=== PATIENT | female | born 1995 | race Caucasian/White ===

== ENCOUNTER → 2019-11-21 | Outpatient (REF) | payer OTHER ==
[2019-11-21 11:14] LABS: BLOOD UREA NITROGEN 12 MG/DL (7-18); CARBON DIOXIDE LEVEL 27 MEQ/L (21-32); CHLORIDE LEVEL 106 MEQ/L (98-107); CREATININE FOR GFR 0.88 MG/DL (0.55-1.30); GLOMERULAR FILTRATION RATE > 60.0 (>60); GLUCOSE, FASTING 99 MG/DL (70-100); POTASSIUM SERUM 4.4 MEQ/L (3.5-5.1); SODIUM LEVEL 139 MEQ/L (136-145)
== END ==
LOC: M SFHCLERA 08:45
PROVIDERS: ATTEND Family Medicine
DX: L70.0 Acne vulgaris (principal)

== ENCOUNTER → 2019-11-25 | Outpatient (REF) | payer OTHER | LOC: M SFHCLERA 16:36 | PROVIDERS: ATTEND Physician Assistant | DX: Z01.84 Encounter for antibody response examination (principal) ==

== ENCOUNTER → 2020-01-21 | Outpatient (REF) | payer OTHER | LOC: M SFHCPLAZ 10:41 | PROVIDERS: ATTEND Family Medicine | DX: Z78.9 Other specified health status (principal) ==